=== PATIENT | female | born 1965 | race Caucasian/White ===

== ENCOUNTER 2023-10-26 15:53 | Emergency (ER) | payer OTHER | END 2023-10-26 18:48 | disposition home or self-care (01) | LOC: JP.ED 15:53 | DX: M54.2 Cervicalgia (principal); E78.00 Pure hypercholesterolemia, unspecified; Z88.1 Allergy status to other antibiotic agents; Z88.8 Allergy status to other drugs, medicaments and biological substances; Z88.2 Allergy status to sulfonamides; Z88.5 Allergy status to narcotic agent; Z79.899 Other long term (current) drug therapy; Z86.16 Personal history of COVID-19; Z90.49 Acquired absence of other specified parts of digestive tract; V43.53XA Car driver injured in collision with pick-up truck in traffic accident, initial encounter; Y93.89 Activity, other specified | CPT/HCPCS: 72125; 76377; 99283; 99284 ==